=== PATIENT | female | born 1980 | race Caucasian/White ===

== ENCOUNTER 2020-08-25 21:07 | Emergency (ER) | payer OTHER ==
[~2020-08-25 21:07] MED LIST: 3IN1 COMMODE; ADMELOG100 UNIT/1 SC; ATARAX25 MG PO; BASAGLAR K100 UNIT/1 SC; HUMARA; HUMIRA40 MG/0.8 SC; HYDRALAZINE25 MG PO; PROZAC20 MG PO; ZOFRAN4 MG PO; insulin
[2020-08-25 22:19] LABS: BASOPHIL 0.6 % (0-2); EOSINOPHIL 0.7 % (0-5); HCT 38.3 % (37.0-47.0); HGB 13.2 g/dl (12.5-16.0); LYMPHOCYTE 16.4 % (15-48); MCH 29.2 pg (25.0-31.0); MCHC 34.5 g/dL (32.0-36.0); MCV 84.7 fL (78.0-100.0); MONOCYTE 9.1 % (0-12); MPV 9.6 fL (6.0-9.5); NEUTROPHIL 72.5 % (41-80); NRBC 0; PLT 261 K/uL (150-400); RBC 4.52 M/uL (4.20-5.40); RDW 12.9 % (11.5-14.0); WBC 6.7 K/uL (4.0-10.5)
[2020-08-25 22:45] LABS: ALBUMIN 3.6 g/dL (3.4-5.0); BILIRUBIN - TOTAL 0.2 mg/dL (0.2-1.0); CREATININE 0.67 mg/dL (0.51-0.95); GLOBULIN (CALCULATION) 3.3 g/dL; POTASSIUM 3.3 mmol/L (3.5-5.1); TOTAL PROTEIN 6.9 g/dL (6.4-8.2)
[2020-08-25 22:48] LABS: LACTIC ACID 4.3 mmol/L (0.4-1.9)
[2020-08-25 23:13] LABS: BILIRUBIN NEGATIVE (NEGATIVE); BLOOD NEGATIVE Ery/uL (NEGATIVE); CLARITY CLEAR (CLEAR); COLOR YELLOW (YELLOW); GLUCOSE (U) 3+ mg/dL (NORMAL); LEUKOCYTES NEGATIVE Leu/uL (NEGATIVE); NITRITE NEGATIVE (NEGATIVE); PROTEIN NEGATIVE (NEGATIVE); UROBILINOGEN 0.2 mg/dL (0.2-1.0); pH 5.5 (5.0-9.0)
[2020-08-25 23:15] LABS: BARBITURATES NEGATIVE (NEGATIVE); ECSTASY (MDMA) NEGATIVE (NEGATIVE); MARIJUANA (THC) NEGATIVE (NEGATIVE); METHADONE NEGATIVE (NEGATIVE); OPIATES NEGATIVE (NEGATIVE)
[2020-08-25 23:16] LABS: AMPHETAMINES NEGATIVE (NEGATIVE); OXYCODONE NEGATIVE (NEGATIVE)
== END 2020-08-26 04:05 | disposition home or self-care (01) ==
LOC: FER 21:07
PROVIDERS: Emergency Medicine
DX: R73.9 Hyperglycemia, unspecified (principal); Z88.5 Allergy status to narcotic agent; Z88.6 Allergy status to analgesic agent
CPT/HCPCS: 36415; 71045; 80053; 80305; 81003; 83605; 83690; 84484; 85025; 93005; G0480; J2270; J2405; J7030